=== PATIENT | female | born 1940 | race Caucasian/White ===

== ENCOUNTER 2017-10-20 15:59 | Emergency (ER) | payer MEDICARE ==
[~2017-10-20] VITALS: Ht 162.6 cm; Wt 63.3 kg
[~2017-10-20 15:59] MED LIST: AUGM875T3 PO; BENZ1CAP54 PO; OMEP20CA2 PO; PRED20 PO; SERT-129 PO; TEMA15CA PO; TRAM50TA PO; VALA500T PO; [UNRECOGNIZED DRUG - CODE]
[2017-10-20 16:07] VITALS: BP 162/95; PULSE 91; RESP 16; TEMP 98.2; O2SAT 96
[2017-10-20] MEDS ORDERED: LACTCAP8 PO (16:23)
[2017-10-20] MEDS ORDERED: MULTTAB67 PO (16:23)
[2017-10-20 16:45] VITALS: BP 145/91; PULSE 80; RESP 16; O2SAT 96
[2017-10-20] MEDS ORDERED: SODIUM CHLORIDE 0.9% FLUSH 10 ML FLUSH IVF PRN (16:45)
[2017-10-20 16:55] LABS: AUTOMATED NEUTROPHIL # 7.3 TH/MM3 (1.8-7.7); BASOPHIL % 0.3 % (0.0-2.0); EOSINOPHIL % 0.3 % (0.0-4.0); LYMPH % 13.1 % (9.0-44.0); LYMPHOCYTE # 1.1 TH/MM3 (1.0-4.8); MEAN CELL VOLUME 87.3 FL (80.0-100.0); MEAN CORPUSCULAR HEMOGLOBIN 28.4 PG (27.0-34.0); MEAN CORPUSCULAR HGB CONC 32.5 % (32.0-36.0); MONO % 3.8 % (0.0-8.0); NEUT % 82.5 % (16.0-70.0); PLATELET COUNT 350 TH/MM3 (150-450); RED BLOOD COUNT 4.46 MIL/MM3 (4.00-5.30); RED CELL DISTRIBUTION WIDTH 12.9 % (11.6-17.2); WHITE BLOOD COUNT 8.7 TH/MM3 (4.0-11.0)
[2017-10-20 16:56] LABS: HEMO FLAGS DIFF FINAL
[2017-10-20 17:11] LABS: CHLORIDE 109 MEQ/L (98-107); POTASSIUM 3.5 MEQ/L (3.5-5.1); SODIUM (NA) 140 MEQ/L (136-145)
[2017-10-20 17:15] LABS: ANION GAP 9 MEQ/L (5-15); BICARBONATE 22.4 MEQ/L (21.0-32.0); BLOOD UREA NITROGEN 13 MG/DL (7-18)
[2017-10-20 17:18] LABS: ALT (GPT) 19 U/L (10-53); AST (GOT) 20 U/L (15-37); GLOMERULAR FILTRATION RATE 86 ML/MIN (>89)
[2017-10-20 17:19] LABS: TOTAL BILIRUBIN ADULT 0.3 MG/DL (0.2-1.0)
[2017-10-20 17:20] LABS: ALKALINE PHOSPHATASE 98 U/L (45-117)
[2017-10-20 17:28] LABS: APTT (PATIENT) 26.4 SEC (24.3-30.1)
[2017-10-20] MEDS ORDERED: PANTOPRAZOLE SODIUM 40 MG VIAL IV PUSH ONE (17:45)
[2017-10-20] MEDS ORDERED: MORPHINE SULFATE 4 MG/ML INJ IV PUSH ONE (17:45)
[2017-10-20] MEDS ORDERED: ONDANSETRON HCL 4 MG/2 ML VIAL IV PUSH ONE (17:45)
[2017-10-20 17:47] VITALS: BP 179/108; PULSE 80; RESP 16; O2SAT 97
[2017-10-20 18:11] VITALS: BP 191/87; PULSE 74; RESP 17; O2SAT 97
[2017-10-20 18:27] LABS: BLOOD, URINE SMALL (NEG); GLUCOSE,URINE NEG (NEG); KETONE, URINE NEG (NEG); NITRITE,URINE NEG (NEG)
[2017-10-20 18:33] LABS: MUCUS URINE FEW /lpf (OCC); URINE COLOR YELLOW (YELLW/STRAW)
[2017-10-20 18:34] LABS: BACTERIA, URINE RARE /hpf; COMMENT (UR) CULTURE INDICATED; CULTURE IF INDICATED CULTURE INDICATED; RBC, URINE 0-3 /hpf (0-3); SQUAMOUS EPITHELIAL CELL URINE > 8 /hpf (0-5)
[2017-10-20 18:45] VITALS: BP 190/88; PULSE 78; RESP 18; O2SAT 95
[2017-10-20] MEDS ORDERED: ZOFR4TAB PO ×2 (18:51→19:17)
--- NOTE | 2017-10-20 18:52 | PD ---
HPI Chief Complaint: GI Complaint Time Seen by Provider: 16:24 Travel History International Travel<30 days: No Contact w/Intl Traveler<30days: No Traveled to known affect area: No History of Present Illness HPI patient is a 77-year-old female who admits to me she takes aspirin fairly regularly for chronic headaches presents emergency department for evaluation of intermittent blood in the stool as well as intermittent blood in her emesis for the past 48 hours. Denies a large volume hematemesis and denies a large volume hematochezia. States his been some time since her last colonoscopy and in route he is not on any blood thinners. She denies any abdominal pain states she is continuing to have a mild headache which is her normal headache and requests something for that. Denies any fever denies any chest pain or shortness of breath. Symptoms are moderate associated signs symptoms as above, context as above, constant. PFSH Past Medical History Arthritis: Yes Diminished Hearing: No Past Surgical History Hysterectomy: Yes (Partial) Social History Alcohol Use: Yes (OCC) Tobacco Use: No Substance Use: No Allergies-Medications (Allergen,Severity, Reaction): Coded Allergies: No Known Allergies (Unverified Adverse Reaction, Unknown, 10/20/17) Reported Meds & Prescriptions Reported Meds & Active Scripts Active Fioricet (Tysaxyfjrx-Ryauzfnsrsmej-Yapgdqqi) 50-300-40 Mg Cap 1-2 Cap PO Q6H PRN Zofran (Ondansetron HCl) 4 Mg Tab 4 Mg PO Q6HR PRN Benzonatate 100 Mg Cap 100 Mg PO TID PRN Tramadol (Tramadol HCl) 50 Mg Tab 2 Tab PO Q6H PRN Valacyclovir (Valacyclovir HCl) 500 Mg Tab 500 Mg PO TID Temazepam 15 Mg Cap 15 Mg PO HS PRN Omeprazole 20 Mg Cap 1 Tab PO DAILY Sertraline (Sertraline HCl) 100 Mg Tab 100 Mg PO DAILY Reported Probiotic (Lactobacillus Acidophilus) 10 Billion Cell Cap 1 Cap PO TIDAC Multiple Vitamin 1 Tab 1 Tab PO DAILY Review of Systems Except as stated in HPI: all other systems reviewed are Neg Physical Exam Narrative GENERAL: Well-developed well-nourished no obvious distress SKIN: Focused skin assessment warm/dry. HEAD: Atraumatic. Normocephalic. EYES: Pupils equal and round. No scleral icterus. No injection or drainage. ENT: No nasal bleeding or discharge. Mucous membranes pink and moist. NECK: Trachea midline. No JVD. CARDIOVASCULAR: Regular rate and rhythm. No murmur appreciated. RESPIRATORY: No accessory muscle use. Clear to auscultation. Breath sounds equal bilaterally. GASTROINTESTINAL: Abdomen soft, non-tender, nondistended. Hepatic and splenic margins not palpable. Rectal exam was performed with female nurse cyber policy and strategy planner and shows fecal occult negative. MUSCULOSKELETAL: No obvious deformities. No clubbing. No cyanosis. No edema. NEUROLOGICAL: Awake and alert. No obvious cranial nerve deficits. Motor grossly within normal limits. Normal speech. PSYCHIATRIC: Appropriate mood and affect; insight and judgment normal. Data Data Last Documented VS Vital Signs Date Time Temp Pulse Resp B/P (MAP) Pulse Ox O2 Delivery O2 Flow Rate FiO2 10/20/17 19:36 98.2 94 16 183/86 (118) 94 10/20/17 18:45 Room Air Orders Orders Complete Blood Count With Diff (10/20/17 16:38) Comprehensive Metabolic Panel (10/20/17 16:38) Lipase (10/20/17 16:38) Prothrombin Time / Inr (Pt) (10/20/17 16:38) Act Partial Throm Time (Ptt) (10/20/17 16:38) Urinalysis - C+S If Indicated (10/20/17 16:38) Ecg Monitoring (10/20/17 16:38) Iv Access Insert/Monitor (10/20/17 16:38) Oximetry (10/20/17 16:38) Sodium Chloride 0.9% Flush (Ns Flush) (10/20/17 16:45) Morphine Inj (Morphine Inj) (10/20/17 17:45) Ondansetron Inj (Zofran Inj) (10/20/17 17:45) Pantoprazole Inj (Protonix Inj) (10/20/17 17:45) Urine Culture (10/20/17 18:02) Ed Discharge Order (10/20/17 19:18) Labs Laboratory Tests Test 10/20/17 16:49 10/20/17 18:02 White Blood Count 8.7 TH/MM3 Red Blood Count 4.46 MIL/MM3 Hemoglobin 12.7 GM/DL Hematocrit 39.0 % Mean Corpuscular Volume 87.3 FL Mean Corpuscular Hemoglobin 28.4 PG Mean Corpuscular Hemoglobin Concent 32.5 % Red Cell Distribution Width 12.9 % Platelet Count 350 TH/MM3 Mean Platelet Volume 8.2 FL Neutrophils (%) (Auto) 82.5 % Lymphocytes (%) (Auto) 13.1 % Monocytes (%) (Auto) 3.8 % Eosinophils (%) (Auto) 0.3 % Basophils (%) (Auto) 0.3 % Neutrophils # (Auto) 7.3 TH/MM3 Lymphocytes # (Auto) 1.1 TH/MM3 Monocytes # (Auto) 0.3 TH/MM3 Eosinophils # (Auto) 0.0 TH/MM3 Basophils # (Auto) 0.0 TH/MM3 CBC Comment DIFF FINAL Differential Comment Prothrombin Time 11.0 SEC Prothromb Time International Ratio 1.0 RATIO Activated Partial Thromboplast Time 26.4 SEC Blood Urea Nitrogen 13 MG/DL Creatinine 0.67 MG/DL Random Glucose 99 MG/DL Total Protein 7.9 GM/DL Albumin 3.9 GM/DL Calcium Level 9.5 MG/DL Alkaline Phosphatase 98 U/L Aspartate Amino Transf (AST/SGOT) 20 U/L Alanine Aminotransferase (ALT/SGPT) 19 U/L Total Bilirubin 0.3 MG/DL Sodium Level 140 MEQ/L Potassium Level 3.5 MEQ/L Chloride Level 109 MEQ/L Carbon Dioxide Level 22.4 MEQ/L Anion Gap 9 MEQ/L Estimat Glomerular Filtration Rate 86 ML/MIN Lipase 239 U/L Urine Color YELLOW Urine Turbidity CLEAR Urine pH 6.0 Urine Specific [place] 1.020 Urine Protein 100 mg/dL Urine Glucose (UA) NEG mg/dL Urine Ketones NEG mg/dL Urine Occult Blood SMALL Urine Nitrite NEG Urine Bilirubin NEG Urine Leukocyte Esterase NEG Urine RBC 0-3 /hpf Urine WBC 9-14 /hpf Urine Squamous Epithelial Cells > 8 /hpf Urine Bacteria RARE /hpf Urine Hyaline Casts 3-5 /lpf Urine Granular Casts 3-5 /lpf Urine Mucus FEW /lpf Microscopic Urinalysis Comment CULTURE INDICATED MDM Medical Decision Making Medical Screen Exam Complete: Yes Emergency Medical Condition: Yes Differential Diagnosis GI bleeding, gastritis, NSAID abuse, aspirin toxicity highly unlikely, anemia. Narrative Course patient roomed emergency department, high volume GI bleeding is unlikely this patient appears well hemodynamically stable. Hemoglobin within normal limits. Fecal occult was negative. At this time her abdomen is benign there is no indication for advanced imaging. She appears well and in no distress, discussed with her that she could consider admission to the hospital for GI consultation which should rather do this as an outpatient. She was counseled on her aspirin use and states that she has been counseled by multiple providers in the past. Written a prescription for chronic headaches to try in lieu of aspirin and she is amenable to the idea. Discussed signs symptoms that should prompt return to ED she stable for discharge. Diagnosis Primary Impression: Hematemesis Additional Impression: NSAID induced gastritis Referrals: Antoinette Pike MD Patient Instructions: Gastrointestinal Bleeding (DC), General Instructions Med/Other Pt SpecificInfo: Prescription(s) given Scripts Ttepqcctgi-Ndhiqdpmoxxnb-Nqaioacm (Fioricet) 50-300-40 Mg Cap 1-2 CAP PO Q6H Y for HEADACHE, #20 CAP 0 Refills Prov: Ulises Linton MD 10/20/17 Ondansetron (Zofran) 4 Mg Tab 4 MG PO Q6HR Y for NAUSEA OR VOMITING, #20 TAB 0 Refills Prov: Ulises Linton MD 10/20/17 Disposition: 01 DISCHARGE HOME Condition: Stable Ulises Linton MD Oct 20, 2017 18:52
[2017-10-20] MEDS ORDERED: BUTA1CAP PO (19:17)
[2017-10-20 19:36] VITALS: BP 183/86; TEMP 98.2
[2017-10-26] MEDS ORDERED: RANI150T PO (15:10)
== END 2017-10-20 19:49 | disposition home or self-care (01) ==
LOC: PHED 15:59
DX: K92.0 Hematemesis (principal); K29.70 Gastritis, unspecified, without bleeding; T39.395A Adverse effect of other nonsteroidal anti-inflammatory drugs [NSAID], initial encounter; R82.71 Bacteriuria; Z79.82 Long term (current) use of aspirin
CPT/HCPCS: 80053; 81001; 83690; 85025; 85610; 85730; 87086; 96374; 96375; 99284; C9113; J2270; J2405